=== PATIENT | female | born 1935 | race Caucasian/White ===

== ENCOUNTER 2019-06-30 07:58 | Emergency (ER) | payer MEDICARE, SELFPAY ==
--- NOTE | ~2019-06-30 | US_ITS ---
EXAMINATION: US venous doppler [facility] EXAM DATE: 06/30/2019 08:58 INDICATION: Left leg pain. TECHNIQUE: Multiple grayscale, color flow and Doppler images of the left lower extremity deep venous system obtained and reviewed. Comparison is made to prior examination from 05/05/2017. FINDINGS: LEFT SIDE Common femoral: --------Nonocclusive thrombus. Profunda femoral: ------- Normal. Femoral: Thrombosed. Popliteal: Nonocclusive thrombus. Posterior tibial: ---------Paired, 1 thrombosed, the other partially thrombosed. Peroneal: Paired, 1 thrombosed, the other patent. Gastrocnemius: Thrombosed. Soleus: Thrombosed. Greater saphenous: -----Nonocclusive thrombus. Lesser saphenous: ------ Not visualized. IMPRESSION: 1. Extensive left lower extremity DVT. Reviewed, dictated and finalized at location B.
--- NOTE | 2019-06-30 08:04 | ED.GENADULT ---
HPI - General Adult General Chief complaint: Extremity Injury, Lower Stated complaint: left leg pain Time Seen by Provider: 06/30/19 08:03 Source: patient and family Mode of arrival: ambulatory Limitations: no limitations History of Present Illness HPI narrative: Patient is an 83-year-old female who presents for evaluation of left leg pain. Pain began yesterday, described as dull, aching in nature, worse with movement. Patient does report that pain is severe when she is at rest. No numbness. No recent falls or injuries. Patient has a history of DVT in this lower extremity, is not currently anticoagulated. Patient denies any bruising, injury, recent heavy lifting. No head, chest or abdominal pain. No hip pain. No fever or chills. Related Data Allergies Allergy/AdvReac Type Severity Reaction Status Date / Time No Known Allergies Allergy Unverified 06/30/19 08:13 Review of Systems Review of Systems: Narrative: CONSTITUTIONAL: Denies fever, chills, or sweats. EYES: Denies visual changes, redness, or discharge. ENT: Denies rhinorrhea, congestion, sore throat, or otalgia. CARDIOVASCULAR: Denies chest pain, palpitations, or edema. RESPIRATORY: Denies cough or dyspnea. GASTROINTESTINAL: Denies abdominal pain, nausea, vomiting, or diarrhea. GENITOURINARY: Denies dysuria or hematuria. SKIN: Denies rash or itching. MUSCULOSKELETAL: Reports left leg pain, from the thigh radiated into the ankle. Denies numbness. NEUROLOGIC: Denies headache, numbness, or weakness. [facility] Past Medical History Medical History (Updated 06/30/19 @ 09:43 by Merlyn España MD) Hypertension TIA (transient ischemic attack) Surgical History Surgical History (Updated 06/30/19 @ 08:24 by Merlyn España MD) H/O inguinal hernia repair History of cholecystectomy Social History Social History (Updated 06/30/19 @ 08:24 by Merlyn España MD) Smoking status: Former smoker Tobacco type: cigarettes Alcohol intake: never Substance use: never Gender identity (if verbalized by the patient): Female Exam Narrative: Exam Narrative: GENERAL: Awake, alert, conversant HEAD: Normocephalic, atraumatic. EYES: PERRLA and EOMI. ENT: Nares clear, no rhinorrhea or epistaxis. Mucous membranes moist. NECK: Supple. CHEST: No respiratory distress, breathing even and non labored HEART: Regular rate, sinus rhythm ABDOMEN:Non distended, non tender EXTREMITIES: Limited range of motion due to pain. No pain with internal and external rotation. Pain with palpation of the thigh and calf. No erythema, edema. No deformity or injury. DP pulses 2+ bilaterally. Compartments are soft. Pelvis is stable. Intact sensation distally. Strength is 5 out of 5. SKIN: Warm, dry, no rash. NEURO:No focal deficits. Alert and oriented x3 Course Vital Signs Vital signs: Vital Signs Temperature 36.7 C 06/30/19 08:09 Pulse Rate 72 06/30/19 08:09 Respiratory Rate 16 06/30/19 08:09 Blood Pressure 199/78 H 06/30/19 08:09 Pulse Oximetry 98 06/30/19 08:09 Temperature 36.7 C 06/30/19 08:09 Pulse Rate 72 06/30/19 08:09 Respiratory Rate 16 06/30/19 08:09 Blood Pressure 199/78 H 06/30/19 08:09 Pulse Oximetry 98 06/30/19 08:09 Medical Decision Making MDM Narrative Medical decision making narrative: Patient presented for evaluation of left leg pain. At the time of assessment, ABCs are intact. Vital signs notable for hypertension, patient states that she recently took her medication before arriving to the ER. Patient with left leg tenderness on exam without erythema, edema, evidence of injury or deformity. Intact neurovascularly. Ultrasound shows extensive left-sided DVT. Patient has been on Eliquis in the past, we will restart this. I also contacted her PCP to make sure she has close follow-up. As patient is neurovascularly intact without sign of ischemic leg, patient was discharged home to see her primary care provider. Vital Signs
[2019-06-30 08:09] VITALS: BP 199/78; PULSE 72; RESP 16; TEMP 36.7; O2SAT 98
--- NOTE | 2019-06-30 08:29 | PC.NURSE ---
Pt taken to Ultrasound at this time\
[2019-06-30] MEDS: KETOROLAC 15 MG/ML VIAL (*BKC) IV PUSH (09:04)
[2019-06-30 09:11] LABS: Basophils Percent Auto 0.1 % (0.2-1.2); Hematocrit 39.8 % (37.0-47.0); Hemoglobin 12.6 g/dL (12.0-15.0); Immature Granulocyte Absolute 0.02 K/mm3 (0.00-0.031); Immature Granulocyte Percent A 0.3 % (0-0.5); Lymphocytes Absolute Auto 1.07 K/mm3 (0.9-3.2); Lymphocytes Percent Auto 15.9 % (18.3-44.2); Mean Corpuscular HGB Conc 31.7 g/dl (32-36); Mean Corpuscular Hemoglobin 28.9 pg (26-34); Mean Corpuscular Volume 91.3 fl (80-100); Mean Platelet Volume 10.2 fl (7.4-10.4); Monocytes Absolute Auto 0.6 K/mm3 (0.1-0.6); Monocytes Percent Auto 8.5 % (2.6-8.5); Neutrophils Percent Auto 75.2 % (45.5-73.1); Platelet Count Result 200 k/mm3 (150-375); Red Blood Count 4.36 M/mm3 (4.2-5.4); Red Cell Distribution Width 14.1 % (11.5-14.5); White Blood Count 6.7 K/mm3 (4.5-10.0)
[2019-06-30 09:22] LABS: INR 1.1; Prothrombin Time 13.7 Seconds (11.1-14.7)
[2019-06-30 09:23] LABS: Partial Thromboplastin Time 24.8 SECONDS (22.3-36.8)
[2019-06-30 09:25] LABS: Blood Urea Nitrogen 33 mg/dL (7-17); Calcium 9.8 mg/dL (8.4-10.2); Carbon Dioxide 30 mmol/L (22-30); Chloride 102 mmol/L (98-107); Estimated CRCL calculation 29 ml/min; Estimated Glomerular Filt Rate 33; Glucose 135 mg/dL (65-105); Potassium 3.9 mmol/L (3.4-5.0); Sodium 138 mmol/L (137-145)
== END 2019-06-30 11:15 | disposition home or self-care (01) ==
PROVIDERS: Emergency Provider Emergency Medicine; PCP Internal Medicine
DX: I82.412 Acute embolism and thrombosis of left femoral vein (principal); I82.432 Acute embolism and thrombosis of left popliteal vein; I82.442 Acute embolism and thrombosis of left tibial vein; I82.452 Acute embolism and thrombosis of left peroneal vein; I82.462 Acute embolism and thrombosis of left calf muscular vein; I10 Essential (primary) hypertension; Z86.73 Personal history of transient ischemic attack (TIA), and cerebral infarction without residual deficits; Z87.891 Personal history of nicotine dependence
CPT/HCPCS: 36415; 80048; 85025; 85610; 85730; 93971; 96374; 99284; A9270; J1885

== ENCOUNTER 2019-09-06 07:04 | Outpatient (CLI) | payer MEDICARE, SELFPAY ==
--- NOTE | ~2019-09-06 | US_ITS ---
EXAMINATION: US venous doppler [facility] DATE: 09/06/2019 09:23 INDICATION: Left lower limb pain. TECHNIQUE: Grayscale ultrasound images without and with compression and Doppler ultrasound images of the left lower extremity veins were obtained. COMPARISON: Ultrasound 06/30/2019 FINDINGS: The visualized portions of left common femoral vein, profunda (deep) femoral vein, popliteal vein, pe roneal veins, posterior tibial veins, and greater saphenous vein outflow are patent. There is thrombu s in left femoral vein. IMPRESSION: 1. Deep vein thrombosis involving left femoral vein with interval improvement in distribution. Reviewed, dictated and finalized at location A.
== END 2019-09-06 07:05 | disposition home or self-care (01) ==
PROVIDERS: PCP Internal Medicine; Visit Provider Internal Medicine Hematology & Oncology
DX: I82.412 Acute embolism and thrombosis of left femoral vein (principal)
CPT/HCPCS: 93971

== ENCOUNTER 2019-12-08 08:17 | Outpatient (CLI) | payer MEDICARE, SELFPAY ==
--- NOTE | ~2019-12-08 | US_ITS ---
EXAMINATION: US venous doppler [facility] DATE: 12/08/2019 09:03 INDICATION: Acute deep venous thrombosis of the left lower limb. TECHNIQUE: Grayscale ultrasound images without and with compression and Doppler ultrasound images of the left lower extremity veins were obtained. COMPARISON: 09/06/2019 FINDINGS: Persistent small amount of nonocclusive deep venous thrombosis in the partially compressible distal l eft femoral vein. The more proximal left femoral vein is patent. The visualized portions of left comm on femoral vein, profunda (deep) femoral vein, popliteal vein, peroneal veins, posterior tibial veins and gastrocnemius vein are patent. There is thrombus at the left greater saphenous vein outflow trac t which is not appreciated on the prior study. IMPRESSION: 1. Thrombosis at the left greater saphenous vein outflow tract which is not appreciated on the most recent prior study but was present on an earlier study dated 06/30/[address] Gary sheffield discussed these findings with Dr. Stokes at 9:25 AM. 2. Unchanged chronic deep venous thrombosis in the distal left femoral vein. Reviewed, dictated and finalized at location A. IMPRESSION: 1. Thrombosis at the left greater saphenous vein outflow tract which is not ap preciated on the most recent prior study but was present on an earlier study da angelo 06/30/[address] Beltrán discussed these findings with Dr. Stokes at 9:25 AM. 2. Unchanged chronic deep venous thrombosis in the distal left femoral vein.
== END 2019-12-08 08:18 | disposition home or self-care (01) ==
LOC: ANHIMG 08:19
PROVIDERS: PCP Internal Medicine; Visit Provider Internal Medicine Hematology & Oncology
DX: I82.4Y2 Acute embolism and thrombosis of unspecified deep veins of left proximal lower extremity (principal)
CPT/HCPCS: 93971

== ENCOUNTER 2019-12-22 08:48 | Outpatient (CLI) | payer MEDICARE, SELFPAY ==
[2019-12-22 13:08] LABS: Prothrombin Time > 120.0 Seconds (11.1-14.7)
[2019-12-22 13:11] LABS: INR > 19.0
== END 2019-12-22 08:49 | disposition home or self-care (01) ==
PROVIDERS: PCP Internal Medicine; Visit Provider Internal Medicine Hematology & Oncology
DX: I82.4Y2 Acute embolism and thrombosis of unspecified deep veins of left proximal lower extremity (principal)
CPT/HCPCS: 36415; 85610

== ENCOUNTER 2019-12-26 08:33 | Outpatient (CLI) | payer MEDICARE, SELFPAY ==
[2019-12-26 10:23] LABS: INR 1.4; Prothrombin Time 16.8 Seconds (11.1-14.7)
== END 2019-12-26 08:34 | disposition home or self-care (01) ==
PROVIDERS: PCP Internal Medicine; Visit Provider Internal Medicine Hematology & Oncology
DX: I82.4Y2 Acute embolism and thrombosis of unspecified deep veins of left proximal lower extremity (principal)
CPT/HCPCS: 36415; 85610

== ENCOUNTER 2021-11-21 19:32 | Emergency (ER) | payer MEDICARE, SELFPAY ==
--- NOTE | ~2021-11-21 | CT_ITS ---
EXAMINATION: CT abdomen pelvis wo con DATE: 11/22/2021 02:24 INDICATION: Abdominal pain. TECHNIQUE: Computed tomography (CT) of the abdomen and pelvis was performed without intravenous contr ast. Automated exposure control and iterative reconstruction technique were employed. The dose-length product was 740.19 mGy-cm. COMPARISON: None. FINDINGS: The visualized portions of the lung bases demonstrate mild atelectasis and mild chronic int erstitial lung disease. No pleural effusion. Cardiomegaly is noted. There are coronary artery calcifi cations. No pericardial effusion. Calcified right hilar lymph nodes are consistent with old granuloma tous disease. There is a small sliding hiatal hernia. The liver is normal. There are changes of josep cystectomy. Calcifications in the spleen are consistent with old granulomatous disease. The pancreas and adrenal glands are normal. There are cysts in the kidneys measuring up to 5.9 cm on the right. Th ere is cortical thinning of the kidneys. There is calcified atherosclerosis of the aorta and many of the other arteries. There are scattered diverticula in the colon. There is wall thickening of the sig moid colon, descending, and distal transverse colon. The appendix is normal. There are no dilated loo ps of bowel. There are no pathologically enlarged lymph nodes. There is no free intraperitoneal fluid . There is a total right hip arthroplasty. There is thoracolumbar levoscoliosis and moderate spondylo sis. IMPRESSION: 1. Colitis involving the sigmoid, descending, and distal transverse colon, which may be ischemic coli tis and/or infectious colitis. 2. Small sliding hiatal hernia. Reviewed, dictated and finalized at location A. IMPRESSION: 1. Colitis involving the sigmoid, descending, and distal transverse colon, whic h may be ischemic colitis and/or infectious colitis. 2. Small sliding hiatal hernia.
[2021-11-21 19:36] VITALS: BP 144/74; PULSE 81; RESP 20; TEMP 36.8; O2SAT 97
[2021-11-21 19:53] LABS: Basophils Percent Auto 0.2 % (0.2-1.2); Hematocrit 42.6 % (37.0-47.0); Hemoglobin 13.7 g/dL (12.0-15.0); Immature Granulocyte Absolute 0.04 K/mm3 (0.00-0.031); Immature Granulocyte Percent A 0.3 % (0-0.5); Lymphocytes Absolute Auto 1.45 K/mm3 (0.9-3.2); Lymphocytes Percent Auto 12.1 % (18.3-44.2); Mean Corpuscular HGB Conc 32.2 g/dl (32-36); Mean Corpuscular Hemoglobin 29.9 pg (26-34); Mean Platelet Volume 10.2 fl (7.4-10.4); Monocytes Absolute Auto 0.8 K/mm3 (0.1-0.6); Monocytes Percent Auto 6.3 % (2.6-8.5); Neutrophils Absolute Auto 9.7 K/mm3 (1.3-6.7); Neutrophils Percent Auto 81.1 % (45.5-73.1); Platelet Count Result 235 k/mm3 (150-375); Red Blood Count 4.58 M/mm3 (4.2-5.4); Red Cell Distribution Width 13.6 % (11.5-14.5)
[2021-11-21 20:04] LABS: Alanine Aminotransferase 21 U/L (6-35); Albumin Level 4.3 g/dL (3.5-5.1); Alkaline Phosphatase 158 U/L (38-126); Anion Gap 18 mmol/L (8-16); Aspartate Amino Transferase 37 U/L (14-36); Blood Urea Nitrogen 43 mg/dL (7-17); Calcium 9.6 mg/dL (8.4-10.2); Carbon Dioxide 21 mmol/L (22-30); Chloride 97 mmol/L (98-107); Estimated CRCL calculation 23 ml/min; Estimated Glomerular Filt Rate 25; Glucose 209 mg/dL (65-110); Lipase 134 U/L (23-300); Potassium 4.2 mmol/L (3.4-5.0); Sodium 136 mmol/L (137-145)
[2021-11-21 22:57] VITALS: BP 117/64; PULSE 70; TEMP 37.2; O2SAT 98
[2021-11-22] VITALS (14 sets, daily range): BP systolic 140–164; BP diastolic 61–77; PULSE 87; RESP 18; O2SAT 97–100
[2021-11-22 00:30] LABS: Appearance Urine Clear (Clear); Bilirubin Urine 3+ (Negative); Blood Urine Negative (Negative); Color Urine Yellow (Yellow); Glucose Urine UA Negative (Negative); Ketones Urine 1+ mg/dL (Negative); Leukocyte Esterase Ur Trace LEU/UL (Negative); Nitrate Urine Negative (Negative); Protein Urine 1+ mg/dL (Negative); Specific Grav Ur >= 1.030 (1.001-1.035)
[2021-11-22 00:38] LABS: Bacteria Urine Trace /hpf; Mucus Urine Rare /lpf; Squamous Epithelial Cell Urine Many /hpf (Few)
[2021-11-22 00:42] LABS: Add Urine Microscopic? YES
[2021-11-22] MEDS: SODIUM CHLORIDE 0.9% IV 1,000 ML 999 ML IV CONT (01:40)
[2021-11-22] MEDS: ONDANSETRON INJ 4 MG/2 ML VIAL IV PUSH (01:40)
--- NOTE | 2021-11-22 03:52 | ED.GENADULT ---
HPI - General Adult General Chief complaint: Abdominal Pain Stated complaint: abdominal pain and n/v Time Seen by Provider: 11/22/21 01:23 History of Present Illness HPI narrative: Patient 85-year-old female who presents the emergency department with chief complaint of diarrhea and vomiting. Patient reports she has history of diverticulitis and colitis before in the past the patient states this feels similar to that. Patient reports she had an episode of vomiting today reports that she had some diarrhea as well Related Data Allergies Allergy/AdvReac Type Severity Reaction Status Date / Time No Known Allergies Allergy Verified 11/21/21 19:40 Review of Systems Review of Systems: A 10 system review of systems was completed on the patient and is negative except for what is stated in the HPI. Nursing and ancillary documentation was reviewed. PMFSH Past Medical History Medical History Hypertension TIA (transient ischemic attack) Surgical History Surgical History H/O inguinal hernia repair History of cholecystectomy Social History Social History Smoking status: Former smoker Tobacco type: cigarettes Alcohol intake: never Substance use: never Gender identity (if verbalized by the patient): Female Exam Narrative: GENERAL: Well-appearing, well-nourished, and in no acute distress. HEAD: Normocephalic, atraumatic. EYES: PERRLA and EOMI. ENT: Nares clear, no rhinorrhea or epistaxis. Mucous membranes moist. NECK: Supple. CHEST: Clear to auscultation. No respiratory distress. HEART: Regular rate and rhythm. No murmur heard. Normal peripheral pulses. ABDOMEN: Soft, diffuse mild tenderness, nondistended, normal active bowel sounds. EXTREMITIES: Normal range of motion. No edema. SKIN: Warm, dry, no rash. NEURO: No focal deficits. Alert and oriented x3. PSYCH: Normal mood and affect. Course Course Emergency Course: CT scan shows evidence of thickening in the transverse colon and descending colon and sigmoid colon concerning for nonspecific colitis. The patient will be given a dose of Cipro and Flagyl in the emergency department and started on Cipro and Flagyl as an outpatient. Vital Signs Vital signs: Vital Signs Temperature 36.8 C 11/21/21 19:36 Pulse Rate 81 11/21/21 19:36 Respiratory Rate 20 11/21/21 19:36 Blood Pressure 144/74 H 11/21/21 19:36 Pulse Oximetry 97 11/21/21 19:36 Oxygen Delivery Room Air 11/21/21 19:36 Temperature 37.2 C 11/21/21 22:57 Pulse Rate 70 11/21/21 22:57 Respiratory Rate 20 11/21/21 19:36 Blood Pressure 144/69 H 11/22/21 03:16 Pulse Oximetry 98 11/22/21 03:16 Oxygen Delivery Room Air 11/21/21 19:36 Medical Decision Making Vital Signs Vital Signs: Vital Signs Temperature 36.8 C 11/21/21 19:36 Pulse Rate 81 11/21/21 19:36 Respiratory Rate 20 11/21/21 19:36 Blood Pressure 144/74 H 11/21/21 19:36 Pulse Oximetry 97 11/21/21 19:36 Oxygen Delivery Room Air 11/21/21 19:36 Temperature 37.2 C 11/21/21 22:57 Pulse Rate 70 11/21/21 22:57 Respiratory Rate 11/21/21 19:36 Blood Pressure 144/69 H 11/22/21 03:16 Pulse Oximetry 98 11/22/21 03:16 Oxygen Delivery Room Air 11/21/21 19:36 Lab Data Result diagrams: 11/21/21 19:47 11/21/21 19:47 Labs: Lab Results 11/21/21 11/21/21 11/22/21 Range/Units 19:47 19:47 00:16 WBC 12.0 H (4.5-10.0) K/mm3 RBC 4.58 (4.2-5.4) M/mm3 Hgb 13.7 (12.0-15.0) g/dL Hct 42.6 (37.0-47.0) % MCV 93.0 (80-100) fl MCH 29.9 (26-34) pg MCHC 32.2 (32-36) g/dl RDW 13.6 (11.5-14.5) % Plt Count 235 (150-375) k/mm3 MPV 10.2 (7.4-10.4) fl Immature Gran % (Auto) 0.3 (0-0.5) % Neut % (Auto) 81.1 H
[2021-11-22] MEDS: CIPROFLOXACIN 500 MG TAB PO (04:18)
[2021-11-22] MEDS: metroNIDAZOLE 250 MG TABLET 500 MG PO (04:18)
== END 2021-11-22 04:43 | disposition home or self-care (01) ==
PROVIDERS: Emergency Medicine; Emergency Provider Emergency Medicine; PCP Internal Medicine
DX: K52.9 Noninfective gastroenteritis and colitis, unspecified (principal); I10 Essential (primary) hypertension; Z86.73 Personal history of transient ischemic attack (TIA), and cerebral infarction without residual deficits; Z87.891 Personal history of nicotine dependence; R82.998 Other abnormal findings in urine
CPT/HCPCS: 36415; 74176; 80053; 81001; 83690; 85025; 87086; 87088; 96361; 96374; 99284; A9270; J2405; J7030

== ENCOUNTER → 2022-02-03 10:04 | Outpatient (CLI) | payer MEDICARE, SELFPAY ==
--- NOTE | ~2022-02-03 | MR_ITS ---
EXAMINATION: MR lumbar spine wo con DATE: 02/03/2022 10:57 INDICATION: Low back pain radiating down the right leg. TECHNIQUE: Magnetic resonance imaging (MRI) of the lumbar spine was performed without intravenous con trast. Sequences included sagittal T2-weighted FSE, sagittal T2-weighted FS FSE, sagittal T1-weighted FSE, and axial T2-weighted FSE. COMPARISON: None FINDINGS: There is 13 degrees levoscoliosis of thoracolumbar spine. There is 9 degrees levocurvature of lower lumbar spine. There is 3 mm anterolisthesis of L2 on L3 and L3 on L4. Vertebral body heights are normal. There is mildly decreased disc height at L1-L2, moderately decreased disc height at L2-L 3 and L3-L4, and mildly decreased disc height at L4-L5 and L5-S1. The distal spinal cord signal inten sity is normal. The conus medullaris is at L1. There are cysts in the kidneys measuring up to 6.2 cm on the right. The following disc levels are specifically discussed: L1-L2: The disc is bulging and has an annular fissure. There is moderate right and mild left facet nathanael int osteoarthritis. There is mild bilateral neural foraminal stenosis. There is mild central canal st enosis. L2-L3: The disc is bulging with superimposed central extrusion. There is severe bilateral facet joint osteoarthritis. There is moderate bilateral neural foraminal stenosis. There is moderate central can al stenosis. L3-L4: The disc is bulging with superimposed right central extrusion. There is severe bilateral facet joint osteoarthritis. There is moderate bilateral neural foraminal stenosis. There is mild central c anal stenosis. L4-L5: The disc is bulging with superimposed right subarticular zone extrusion. There is severe bilat eral facet joint osteoarthritis. There is mild right and severe left neural foraminal stenosis. There is moderate central canal stenosis. There is severe stenosis of left lateral recess. L5-S1: The disc is bulging and has an annular fissure. There is severe bilateral facet joint osteoart hritis. There is mild right and moderate left neural foraminal stenosis. There is mild central canal stenosis. IMPRESSION: 1. Severe lumbar spondylosis. 2. Scoliosis. Reviewed, dictated and finalized at location A. [employer]
== END ==
PROVIDERS: PCP Psychiatry & Neurology Neurology; Visit Provider Psychiatry & Neurology Neurology
DX: M47.896 Other spondylosis, lumbar region (principal); M41.9 Scoliosis, unspecified
CPT/HCPCS: 72148

== ENCOUNTER 2022-10-04 18:15 | Emergency (ER) | payer MEDICARE, SELFPAY ==
[2022-10-04 18:28] VITALS: BP 219/84; PULSE 62; RESP 16; TEMP 36.2; O2SAT 97
[2022-10-04 18:31] VITALS: BP 219/84; PULSE 62; RESP 16; TEMP 36.2; O2SAT 97
--- NOTE | 2022-10-04 19:12 | ED.NAVMDI ---
HPI - Nausea/Vomiting/Diarrhea General Chief complaint: Abdominal Pain Stated complaint: Abdominal pain Time Seen by Provider: 10/04/22 18:56 Source: patient, family (Daughter) and RN notes reviewed Mode of arrival: ambulatory Limitations: no limitations History of Present Illness HPI Narrative: Patient presents today complaining of generalized abdominal pain x2 weeks with subjective fever intermittently, a few episodes of nausea and vomiting. She is not currently nauseated at this time. Denies diarrhea. She currently rates her abdominal pain 910. She called her PCP's office on 09/30/2022 and was placed on Cipro and Flagyl via telephone. Patient has not been taking the Flagyl as she said it upsets her stomach. States the Cipro has not helped with her symptoms. History of diverticulitis. She has also been on a bland diet for 2 weeks without relief of symptoms. Related Data Home Medications Medication Instructions Recorded Confirmed atorvastatin 10 mg tablet 10 mg PO DAILY 10/04/22 10/04/22 ciprofloxacin HCl 500 mg tablet 500 mg PO DAILY 10/04/22 10/04/22 enalapril 10 1 tablet PO DAILY 10/04/22 10/04/22 mg-hydrochlorothiazide 25 mg tablet metoprolol succinate 100 mg 100 mg PO DAILY 10/04/22 10/04/22 tablet,extended release 24 hr ondansetron HCl 4 mg tablet 4 mg PO DAILY 10/04/22 10/04/22 Allergies Allergy/AdvReac Type Severity Reaction Status Date / Time No Known Allergies Allergy Verified 10/04/22 18:32 Review of Systems Review of Systems: CONSTITUTIONAL: Denies body aches, chills, or sweats.+ subjective fever EYES: Denies visual changes, redness, or discharge. ENT: Denies rhinorrhea, congestion, sore throat, or otalgia. CARDIOVASCULAR: Denies chest pain, palpitations, or edema. RESPIRATORY: Denies cough or dyspnea. GASTROINTESTINAL: Denies diarrhea.+ abdominal pain, nausea, vomiting GENITOURINARY: Denies dysuria or hematuria. SKIN: Denies rash, itching, or wounds. MUSCULOSKELETAL: Denies back pain, joint pain, or myalgia. NEUROLOGIC: Denies headache, numbness, tingling, or weakness. PSYCH: Denies depression or anxiety. [facility] Past Medical History Medical History (Updated 10/04/22 @ 19:17 by Mary Shepard, [facility], ) Diverticulitis Hypertension TIA (transient ischemic attack) Surgical History Surgical History H/O inguinal hernia repair History of cholecystectomy Family History Family History Father Hypertension Heart disease Mother Hypertension Heart disease Sibling Diabetes mellitus Hypertension Daughter Asthma Hypertension Social History Social History Social History: Akilah is very confident filling out medical forms. In the last 12 months she has not received assistance from an organization or program. She denies currently using recreational or street drugs. She is over the age of 66 and denies frequent falls. She does not currently have a caffeine intake. Akilah has medical problems such as blood clots and hypertension. She has had 3 pregnancies resulting in 3 live births. Smoking status: Former smoker Tobacco type: cigarettes Alcohol intake: never Substance use: never Substance use type: does not use Other substance usage details: denies ever giving herself street drugs with a needle Lack of Transportation: No Lack of Food: Never True Current Housing: I Have Housing Concerned About Future Housing: No Difficulty Paying Gas/Electric Bills: No Difficulty Paying for Meds: No Currently Unemployed: No Education: Grade School Difficulty w/ Childcare or Family Care: No Living arrangements: alone Occupation/Education: unemployed Gender identity (if verbalized by the patient): Female Agree to blood products: Yes Comments At time of signature, I have review
== END 2022-10-04 19:26 | disposition short-term general hospital (02) ==
PROVIDERS: Emergency Provider Nurse Practitioner; PCP Internal Medicine
DX: R10.9 Unspecified abdominal pain (principal); I10 Essential (primary) hypertension; Z86.73 Personal history of transient ischemic attack (TIA), and cerebral infarction without residual deficits; Z87.891 Personal history of nicotine dependence
CPT/HCPCS: 99212; G0463

== ENCOUNTER → 2022-12-16 06:58 | Outpatient (CLI) | payer MEDICARE, SELFPAY ==
--- NOTE | ~2022-12-16 | MR_ITS ---
EXAMINATION: MR lumbar spine wo con DATE: 12/16/2022 07:34 INDICATION: Lumbar spinal stenosis presenting with chronic low back pain radiating to the right leg TECHNIQUE: Magnetic resonance imaging (MRI) of the lumbar spine was performed without intravenous con trast. Sequences included sagittal T2-weighted FSE, sagittal T2-weighted FS FSE, sagittal T1-weighted FSE, and axial T2-weighted FSE. COMPARISON: 02/03/2022 FINDINGS: 18 degrees upper lumbar levoscoliosis. 2 mm retrolisthesis L1 on L2 and L3 on L4 and 3 mm anterolisth esis L2 on L3. Vertebral body heights are normal. There are Schmorl's nodes along the inferior endpla arnulfo of T11, L1 and L2. Low signal intensity bone island at L4. Normal marrow signal. Mild to moderate right-sided predominant disc height loss at L2-L3 and L3-L4. Mild disc height loss at L4-L5 and with right-sided predominance at L1-L2. There are annular fissures at L1-L2 through L5-S1. The conus medu llaris terminates at L1-L2. There is normal signal in the caudal spinal cord. Severe central canal st enosis at L1-L2 resulting in a lax underlying course to the nerve roots of the cauda equina cephalad to this level and with relatively taut appearance more caudally. Large bilateral renal cysts measurin g up to 5.7 cm on the right and 3.5 cm on the left. Paravertebral soft tissues are unremarkable. The following disc levels are specifically discussed: T11-T12: Disc is mildly bulging. There is minimal right and severe left facet joint osteoarthritis. T here is moderate left and no right neural foraminal stenosis. There is mild central canal stenosis. T12-L1: Disc is mildly bulging. There is mild bilateral facet joint osteoarthritis. There is no neura l foraminal stenosis. There is mild central canal stenosis. L1-L2: Disc is bulging. There is mild left and moderate right facet joint osteoarthritis. There is mi ld left and moderate right neural foraminal stenosis. There is mild central canal stenosis. L2-L3: Disc is bulging with annular fissure and central disc extrusion with disc material extending u p to 7 mm cephalad to the level of the inferior endplate of L2. There is hypertrophy of the ligamentu m flavum. There is severe bilateral facet joint osteoarthritis. There is moderate left and moderate t o severe right neural foraminal stenosis. There is severe central canal stenosis. L3-L4: Disc is bulging with superimposed annular fissure and broad-based disc extrusion extending fro m foraminal zone to foraminal zone with disc material extending up to 5 mm cephalad to the level of t he inferior endplate of L3. There is severe bilateral facet joint osteoarthritis. There is moderate l eft and moderate to severe right neural foraminal stenosis. There is moderate central canal stenosis. L4-L5: Disc is bulging with superimposed annular fissure and left subarticular zone disc extrusion wi th disc material extending up to 6 mm cephalad to the level of the inferior endplate of L4. There is hypertrophy of the ligamentum flavum along with increased epidural fat. There is severe bilateral fac et joint osteoarthritis. There is moderate right and moderate to severe left neural foraminal stenosi s. There is severe central canal stenosis. L5-S1: Disc is bulging. There is moderate right and severe left facet joint osteoarthritis. There is mild right and moderate left neural foraminal stenosis. There is moderate to severe right-sided extra foraminal stenosis with compression of the exiting left L5 nerve root between the disc bulge in the b ase of the L5 transverse process. There is mild central canal stenosis. IMPRESSION: 1. 18 degrees lumbar levoscoliosis with moderate spondylosis most notable for severe central canal st enosis at both L2-L3 and L4-L5. Reviewed, dictated and finalized at location A. 11
== END ==
PROVIDERS: PCP Neurological Surgery; Visit Provider Neurological Surgery
DX: M48.062 Spinal stenosis, lumbar region with neurogenic claudication (principal); M48.061 Spinal stenosis, lumbar region without neurogenic claudication; M47.896 Other spondylosis, lumbar region
CPT/HCPCS: 72148

== ENCOUNTER 2023-10-23 12:32 | Emergency (ER) | payer MEDICARE, SELFPAY ==
[2023-10-23] VITALS (44 sets, daily range): BP systolic 93–189; BP diastolic 46–75; PULSE 54–75; RESP 11–21; TEMP 36.6–37.3; O2SAT 91–99
--- NOTE | ~2023-10-23 | XR_ITS ---
EXAMINATION: XR chest 1V portable DATE: 10/23/2023 14:12 INDICATION: Syncope. TECHNIQUE: A single frontal view of the chest was obtained. COMPARISON: Chest view 05/04/2017 FINDINGS: There is no pneumonia, pleural effusion, or pneumothorax. Cardiomegaly is noted. Median surinder rnotomy wires and mediastinal surgical clips are seen, likely from prior coronary artery bypass graft ing. Surgical clips in the right upper quadrant are likely from cholecystectomy. IMPRESSION: 1. Cardiomegaly. Reviewed, dictated and finalized at location A. IMPRESSION: 1. Cardiomegaly.
--- NOTE | ~2023-10-23 | CT_ITS ---
EXAMINATION: CT abdomen pelvis w con DATE: 10/23/2023 16:09 INDICATION: Generalized abdominal pain. TECHNIQUE: Computed tomography (CT) of the abdomen and pelvis was performed with 100 mL Omnipaque 350 intravenous contrast. Automated exposure control and iterative reconstruction technique were employe d. The dose-length product was 898.83 mGy-cm. COMPARISON: CT abdomen and pelvis 11/22/2021 FINDINGS: The visualized portions of the lung bases demonstrate mild atelectasis and chronic lung dis ease. A calcified right lung nodule and calcified right hilar lymph nodes are consistent with old gra nulomatous disease. No pleural effusion. Cardiomegaly is noted. There are coronary artery calcificati ons. No pericardial effusion. There is a moderate-sized sliding hiatal hernia. There is mild intrahep atic biliary duct dilatation, likely secondary to cholecystectomy. The common duct is normal and daniel ures 10 mm. Calcifications in the spleen are consistent with old granulomatous disease. The pancreas and adrenal glands are normal. There are cysts in the kidneys measuring up to 6.4 cm on the right. Th ere is cortical thinning of the kidneys. There is a 6 mm stone in left kidney. There is calcified ath erosclerosis of the aorta and many of the other arteries. There are scattered diverticula in the colo n. There is wall thickening of the rectum and sigmoid colon and descending colon, consistent with col itis. The appendix is normal. There are no pathologically enlarged lymph nodes. There is no free intr aperitoneal fluid. There is a total right hip arthroplasty. There is thoracolumbar levoscoliosis and moderate spondylosis. IMPRESSION: 1. Distal colitis. 2. Moderate-sized sliding hiatal hernia. Reviewed, dictated and finalized at location A.
--- NOTE | 2023-10-23 12:47 | ECG_ITS ---
Test Date: 2023-10-23 13:15:26 Measurements Intervals [place] Rate: 54 P: 68 MN: 254 QRS: -53 QRSD: 169 T: 123 QT: 495 QTc: 469 Interpretive Statements SINUS BRADYCARDIA WITH FIRST DEGREE AV BLOCK MARKED LEFT AXIS DEVIATION [QRS AXIS < -30] LEFT BUNDLE BRANCH BLOCK [120+ ms QRS DURATION, 80+ ms Q/S IN V1/V2, 85+ ms R IN I/aVL/V5/V6] ABNORMAL ELECTROCARDIOGRAM No previous ECG available for comparison Electronically Signed On 10-23-2023 18:19:20 CDT by Jose Luis Weinstein M.D.
--- NOTE | 2023-10-23 13:04 | ED.GENADULT ---
HPI - General Adult General Chief complaint: Syncope Stated complaint: syncope, n/v, abd pain History of Present Illness HPI narrative: This is an 87-year-old female presenting with sudden onset of nausea vomiting diarrhea and a syncopal episode. Patient was out with her family shopping when all the sudden she felt ill. She got back in the car she began vomiting and then lost consciousness. She was unconscious for approximately 6 minutes before EMS arrived. She then started to wake up but was confused. No shaking motion or history of seizures. Patient then started to have copious amounts of foul-smelling diarrhea. At the moment she denies fevers chills chest pain or difficulty breathing. She does have diffuse abdominal pain that she cannot localize. No urinary symptoms. No recent antibiotics. No history of C diff. no travel history Related Data Home Medications Medication Instructions Recorded Confirmed atorvastatin 10 mg tablet 10 mg PO DAILY 10/04/22 05/01/23 enalapril 10 1 tablet PO DAILY 10/04/22 05/01/23 mg-hydrochlorothiazide 25 mg tablet metoprolol succinate 100 mg 100 mg PO DAILY 10/04/22 05/01/23 tablet,extended release 24 hr ondansetron HCl 4 mg tablet 4 mg PO DAILY 10/04/22 05/01/23 Allergies Allergy/AdvReac Type Severity Reaction Status Date / Time No Known Allergies Allergy Verified 10/23/23 13:26 [facility] Past Medical History Medical History Diverticulitis Hypertension TIA (transient ischemic attack) Surgical History Surgical History H/O inguinal hernia repair History of cholecystectomy Family History Family History Father Hypertension Heart disease Mother Hypertension Heart disease Sibling Diabetes mellitus Hypertension Daughter Asthma Hypertension Social History Social History Social History: Akilah is very confident filling out medical forms. In the last 12 months she has not received assistance from an organization or program. She denies currently using recreational or street drugs. She is over the age of 65 and denies frequent falls. She does not currently have a caffeine intake. Akilah has medical problems such as blood clots and hypertension. She has had 3 pregnancies resulting in 3 live births. Smoking status: Former smoker Tobacco type: cigarettes Alcohol intake: never Substance use: never Substance use type: does not use Other substance usage details: denies ever giving herself street drugs with a needle Do You Feel Safe in your Home?: Yes Lack of Transportation: No Lack of Food: Never True Current Housing: I Have Housing Concerned About Future Housing: No Difficulty Paying Gas/Electric Bills: No Difficulty Paying for Meds: No Currently Unemployed: No Education: Decline to Answer Difficulty w/ Childcare or Family Care: No Living arrangements: alone Occupation/Education: unemployed Gender identity (if verbalized by the patient): Female Agree to blood products: Yes Exam Narrative: APPEARANCE: Patient appears uncomfortable, she is holding her belly and moaning, She is actively having non-bloody diarrhea Head: atraumatic. EYES: EOMI, NOSE: Atraumatic NECK: Trachea midline RESPIRATORY: No increased rate of breathing, clear to auscultation CARDIOVASCULAR: RRR, no peripheral edema ABDOMINAL: Diffusely tender without guarding or rebound MUSCULOSKELETAl: No obvious deformities NEURO: Alert. Moving 4/4 extremities SKIN:: Warm, dry. Normal color PSYCHIATRIC: Normal affect Course Vital Signs Vital signs: Vital Signs Pulse Rate 60 10/23/23 12:22 Respiratory Rate 11 L 10/23/23 12:22 Blood Pressure 115/59 L 10/23/23 12:22 Pulse Oximetry 97 10/23/23 12:22 Oxygen Delivery Room Air
--- NOTE | 2023-10-23 13:14 | PC.NURSE ---
changed linens and removed patients stool covered clothing and placed them in a gown and fresh depends.
[2023-10-23] MEDS: SODIUM CHLORIDE 0.9% IV 3,000 ML 999 ML IV CONT (13:21)
[2023-10-23] MEDS: ONDANSETRON INJ 4 MG/2 ML VIAL IV PUSH (13:21)
--- NOTE | 2023-10-23 14:13 | PC.NURSE ---
multiple staff members attempted multiple times to get blood cultures and labs from the patient. Phlebotomy called and will get the labs from the patient
[2023-10-23 14:47] LABS: Toxigenic C. Diff NEGATIVE (NEGATIVE)
[2023-10-23 14:58] LABS: Basophils Percent Auto 0.2 % (0.2-1.2); Hematocrit 36.3 % (37.0-47.0); Hemoglobin 11.4 g/dL (12.0-15.0); Immature Granulocyte Absolute 0.04 K/mm3 (0.00-0.031); Immature Granulocyte Percent A 0.4 % (0-0.5); Lymphocytes Percent Auto 14.5 % (18.3-44.2); Mean Corpuscular HGB Conc 31.4 g/dl (32-36); Mean Corpuscular Hemoglobin 30.1 pg (26-34); Mean Corpuscular Volume 95.8 fl (80-100); Mean Platelet Volume 10.6 fl (7.4-10.4); Monocytes Absolute Auto 0.5 K/mm3 (0.1-0.6); Monocytes Percent Auto 5.2 % (2.6-8.5); Neutrophils Absolute Auto 7.7 K/mm3 (1.3-6.7); Neutrophils Percent Auto 79.7 % (45.5-73.1); Platelet Count Result 186 k/mm3 (150-375); Red Blood Count 3.79 M/mm3 (4.2-5.4); White Blood Count 9.7 K/mm3 (4.5-10.0)
[2023-10-23 15:03] LABS: INR 1.2; Partial Thromboplastin Time 23.9 Seconds (22.3-36.8); Prothrombin Time 15.3 Seconds (11.1-14.7)
[2023-10-23 15:06] LABS: Lipase 138 U/L (23-300); Magnesium 1.3 mg/dL (1.6-2.3); Phosphorus 4.3 mg/dL (2.5-4.5)
[2023-10-23 15:08] LABS: Alanine Aminotransferase 15 U/L (6-35); Albumin Level 3.9 g/dL (3.5-5.1); Alkaline Phosphatase 111 U/L (38-126); Anion Gap 10 mmol/L (4-12); Aspartate Amino Transferase 30 U/L (14-36); Bilirubin,Total 1.3 mg/dL (0.2-1.3); Blood Urea Nitrogen 41 mg/dL (7-17); Calcium 9.9 mg/dL (8.4-10.2); Carbon Dioxide 27 mmol/L (22-30); Chloride 103 mmol/L (98-107); Estimated CRCL calculation 19 ml/min; Estimated Glomerular Filt Rate 25; Glucose 115 mg/dL (65-110); Lactic Acid Reflex 1.5 mmol/L (0.7-2.0); Potassium 3.9 mmol/L (3.4-5.0); Sodium 140 mmol/L (137-145)
[2023-10-23 15:21] LABS: NT Pro B Type Natriuretic Pept 2650 pg/mL (19.9-100); Troponin I 0.017 ng/mL (0.000-0.034)
[2023-10-23 16:40] LABS: Influenza A QL RT-PCR Negative (Negative); Influenza B QL RT-PCR Negative (Negative); RSV RNA, RT-PCR Negative (Negative); SARS-CoV-2 RNA PCR Positive (Negative)
[2023-10-23 17:10] LABS: Add Urine Microscopic? NO; Appearance Urine Clear (Clear); Bilirubin Urine Negative (Negative); Blood Urine Negative (Negative); Color Urine Yellow (Yellow); Glucose Urine UA Negative (Negative); Ketones Urine Negative (Negative); Leukocyte Esterase Ur Negative LEU/UL (Negative); Nitrate Urine Negative (Negative); Protein Urine Negative (Negative); Urobilinogen Urine 0.2 mg/dL (<2.0)
--- NOTE | 2023-10-23 17:33 | ECG_ITS ---
Test Date: 2023-10-23 17:50:43 Measurements Intervals [place] Rate: 72 P: 81 AL: 267 QRS: 20 QRSD: 166 T: 126 QT: 451 QTc: 494 Interpretive Statements SINUS RHYTHM WITH FIRST DEGREE AV BLOCK LEFT BUNDLE BRANCH BLOCK [120+ ms QRS DURATION, 80+ ms Q/S IN V1/V2, 85+ ms R IN I/aVL/V5/V6] ABNORMAL ECG Compared to ECG 10/23/2023 13:15:26 LONGER AL INTERVAL Electronically Signed On 10-23-2023 18:24:58 CDT by Jose Luis Weinstein M.D.
--- NOTE | 2023-10-23 17:46 | PC.NURSE ---
Patient ambulated well with no assistance. Oxygen saturation was 94% throughout walk.
[2023-10-23] MEDS: MAGNESIUM SULF 2 GM/WATER 50ML 2 GM/50 ML BAG IVPB (18:08)
== END 2023-10-23 20:11 | disposition home or self-care (01) ==
PROVIDERS: Emergency Provider Emergency Medicine; PCP Internal Medicine
DX: U07.1 COVID-19 (principal); R19.7 Diarrhea, unspecified; R10.9 Unspecified abdominal pain; I10 Essential (primary) hypertension; Z86.73 Personal history of transient ischemic attack (TIA), and cerebral infarction without residual deficits; Z87.891 Personal history of nicotine dependence; Z90.49 Acquired absence of other specified parts of digestive tract; Z79.899 Other long term (current) drug therapy; R00.1 Bradycardia, unspecified; I44.0 Atrioventricular block, first degree; I44.7 Left bundle-branch block, unspecified
CPT/HCPCS: 36415; 71045; 74177; 80053; 81003; 83605; 83690; 83735; 83880; 84100; 84484; 85025; 85610; 85730; 87040; 87493; 87637; 93005; 96361; 96365; 96366; 96375; 99284; J2405; J3475; J7030; Q9967